=== PATIENT | female | born 1960 | race Two or more races ===

== ENCOUNTER 2020-09-11 14:12 | Emergency (ER) | payer OTHER ==
[~2020-09-11] VITALS: Ht 167.6 cm; Wt 59.9 kg
[2020-09-11] MEDS ORDERED: NORVASC2.5 M1 (14:41)
[2020-09-11] MEDS ORDERED: TOPROL XL25 M1 (14:41)
[2020-09-11] MEDS ORDERED: ADULT LOW DOSE81 M1 (14:41)
[2020-09-11] MEDS ORDERED: NEURONTIN300 MG PO (19:52)
== END 2020-09-11 20:05 | disposition home or self-care (01) ==
LOC: ER 14:12
DX: K61.1 Rectal abscess (principal)

== ENCOUNTER → 2020-11-19 | Day surgery (SDC) | payer OTHER ==
[~2020-11-19] MED LIST: ADULT LOW DOSE81 M1; NEURONTIN300 MG PO; NORVASC2.5 M1; TOPROL XL25 M1
== END | disposition home or self-care (01) ==
LOC: ADM 11-13 13:15 → AMB-ENDOS 08:31
PROVIDERS: ATTEND Surgery
DX: C20 Malignant neoplasm of rectum (principal)

== ENCOUNTER 2020-12-17 11:30 | Inpatient (IN) | payer OTHER ==
[~2020-12-17] VITALS: Ht 167.6 cm; Wt 56.7 kg
[2020-12-23] MEDS ORDERED: GABAPENTIN300 M2 (16:22)
[2020-12-23] MEDS ORDERED: LEUCOVORIN CAL200 MG (16:22)
[2020-12-23] MEDS ORDERED: OMEPRAZOLE20 MG (16:22)
[2020-12-23] MEDS ORDERED: EZETIMIBE10 MG (16:24)
[2020-12-26] MEDS ORDERED: OXYC1TAB9 PO (11:39)
[2020-12-26] MEDS ORDERED: HYOSCYAMINE0.125 M1 SL (11:39)
== END 2020-12-26 12:56 | disposition home or self-care (01) | DRG 333 ==
LOC: O/R 12-23 09:31 → SURG 12-23 09:31 → SURH 12-23 11:30 → SURG 12-23 20:45 → SURH 12-23 23:30 → SURG 12-26 12:56
PROVIDERS: ADMIT Surgery; ATTEND Surgery
PROC: 3E0F7SF Introduction of Other Gas into Respiratory Tract, Via Natural or Artificial Opening (ICD-10-PCS; 2020-12-23)
PROC: 0DBP4ZZ Excision of Rectum, Percutaneous Endoscopic Approach (ICD-10-PCS; principal; 2020-12-23 14:15)
DX: C20 Malignant neoplasm of rectum (principal); K62.5 Hemorrhage of anus and rectum; K61.1 Rectal abscess; I11.9 Hypertensive heart disease without heart failure

== ENCOUNTER 2022-03-30 06:00 | Day surgery (SDC) | payer OTHER ==
[~2022-03-30] VITALS: Ht 167.6 cm; Wt 59.0 kg
[~2022-03-30 06:00] MED LIST changes: +EZETIMIBE10 MG; +GABAPENTIN300 M2; +HYOSCYAMINE0.125 M1 SL; +LEUCOVORIN CAL200 MG; +OMEPRAZOLE20 MG; +OXYC1TAB9 PO
[2022-03-30] MEDS ORDERED: LEVOFLOXACIN500 MG PO (13:36)
[2022-03-30] MEDS ORDERED: TRAM1TAB98 PO (13:37)
== END 2022-03-30 15:00 | disposition home or self-care (01) ==
LOC: CIR.AMB 06:00
PROVIDERS: ATTEND Surgery
DX: C20 Malignant neoplasm of rectum (principal); R59.0 Localized enlarged lymph nodes; Z85.048 Personal history of other malignant neoplasm of rectum, rectosigmoid junction, and anus; I11.9 Hypertensive heart disease without heart failure